=== PATIENT | male | born 1945 | race Caucasian/White ===

== ENCOUNTER 2016-12-16 11:28 | Outpatient (CLI) | payer OTHER ==
[~2016-12-16 11:28] MED LIST: ASPIRIN 81 LOW81 MG PO; GLUCOSAMINE750 MG PO; IMDUR30 MG PO; MULTIPLE VITAMIN PO; NAPROSYN250 MG PO; NITROSTAT0.4 MG SL; PRILOSEC20 MG PO; PROBIOTI1 PO; SIMVASTATIN40 MG PO; VITAMIN C500 M1 PO
--- NOTE | 2016-12-16 12:25 | DIAGNOSTIC IMAGING REPORT ---
PROCEDURE: XR KNEE 4 VIEWS - LEFT INDICATION: PAIN IN LEFT KNEE TECHNIQUE: Four views. COMPARISON: None. FINDINGS: Osteoarthritis with narrowing of the medial joint space compartment. IMPRESSION: 1. Osteoarthritis with narrowing of the medial joint space compartment.
== END 2016-12-16 23:00 ==
LOC: XR SRH 11:28
DX: M17.12 Unilateral primary osteoarthritis, left knee (principal)